=== PATIENT | male | born 1950 | race Caucasian/White ===

== ENCOUNTER 2018-07-07 14:49 | Outpatient (CLI) | payer MEDICARE, OTHER | END 2018-07-07 14:50 | disposition home or self-care (01) | LOC: SC 14:49 | PROVIDERS: ATTEND Nurse Practitioner Family | DX: G47.33 Obstructive sleep apnea (adult) (pediatric) (principal) | CPT/HCPCS: 99214; G0463; 99212 ==

== ENCOUNTER 2020-06-01 09:38 | Outpatient (CLI) | payer MEDICARE, OTHER ==
[2020-06-01 16:04] LABS: CALCIUM 9.6 mg/dL (8.5-10.3)
[2020-06-01 16:05] LABS: ALBUMIN 4.4 g/dL (3.2-5.5); ALKALINE PHOSPHATASE 52 IU/L (42-121); ALT ALANINE AMINOTRANSFERASE 30 IU/L (10-60); AST ASPARTATE AMINOTRANSFERASE 27 IU/L (10-42); BILIRUBIN,DIRECT 0.2 mg/dL (0.1-0.5); BILIRUBIN,TOTAL 1.1 mg/dL (0.2-1.0); CHOL/HDL RATIO 3.1 (<5.0); CHOLESTEROL 121 mg/dL; HDL CHOLESTEROL 39 mg/dL; LDL CHOLESTEROL,CALCULATED 61 mg/dL; LDL/HDL RATIO 1.6 (<3.6); TOTAL PROTEIN 7.5 g/dL (6.7-8.2); VLDL CHOLESTEROL 21 mg/dL
== END 2020-06-01 09:39 | disposition home or self-care (01) ==
LOC: LAB.S 09:38
PROVIDERS: ATTEND Internal Medicine Cardiovascular Disease
DX: I10 Essential (primary) hypertension (principal); I25.10 Atherosclerotic heart disease of native coronary artery without angina pectoris; E78.2 Mixed hyperlipidemia; Z12.5 Encounter for screening for malignant neoplasm of prostate; R79.89 Other specified abnormal findings of blood chemistry
CPT/HCPCS: 36415; 80048; 80061; 80076; 83721; 84153

== ENCOUNTER 2021-09-04 13:02 | Outpatient (CLI) | payer MEDICARE, OTHER ==
[2021-09-04 14:04] VITALS: BP 177/94
--- NOTE | 2021-09-04 14:04 | SLEEP CARE CONSULTATION ---
Information from patient questionnaire entered by Yessenia Garcia MA. I have reviewed and concur with the information entered by Yessenia Garcia MA. This document represents the service I personally performed and the decisions made by , Carmen Reaves ARNP. History of Present Illness Service Date and Time: 09/04/2021 1302 Reason for Visit: New patient (last seen 2017, on CPAP ), Previously diagnosed sleep apnea, sleep apnea on CPAP therapy Chief Complaint: reports: Other (review, over 3 years since last visit - Update supplies) Usual bedtime: 11 pm-12 midnight Time it takes to fall asleep: 20 min - 1 hours Snores at night: Yes Observed to quit breathing while asleep: No (not sure since having CPAP) Sleeps alone due to snoring: No Number of times waking at night: 2-3 times Reasons for waking at night: reports: Bathroom (mostly), Other (unknown reason) Toss, Turn, or Twitch while sleeping: Yes Recalls having dreams: Yes Usually gets out of bed at: 0430 to 0900 am Feels refreshed in the morning: No Morning headache: No Sleepy or fatigued during the day: No (yes, if I swim, otherwise no) Ever fallen asleep while driving: No Takes day naps: Yes (daily) Dreams during day naps: No Prior sleep studies: Yes Additional HPI information: FAMILIA ZHU was previously diagnosed to have mild, AHI 14.3, obstructive sleep apnea-hypopnea syndrome and comes in today to re-establish care for CPAP therapy. - Parasomnia Symptoms Ever been unable to move upon waking from sleep: No Walks in sleep: No Talks in sleep: No Ever acted out dreams in sleep: No Ever felt weak in the knees when startled or emotional: No Bothered by creepy, crawly, restless sensations in legs: No Problems with memory or concentration: Yes (Covid - depression - yes) CPAP Compliance Data - Data Reviewed with Patient Average duration of nightly device use: 6 hours and 44 minutes Compliance rate %: 93.3 Current pressure setting (cmH2O): 5-10 Humidity setting: off Heated hose settin Average residual AHI: 7.5 Average large leak: 11 minutes 2 seconds Compliance data discussion: He used to get his supplies from [employer]. He last purchased a mask online. He is using a nasal pillows mask. He has an old RemStar 60 series that he states still works that may not be on the recall and a Dreamstation that he has registered for the recall. Subjective Missed days of use due to: reports: other (recall) Patient concerns: reports: dry mouth, nose, throat (little bit, nothing bad). denies: aerophagia, mask discomfort, air blowing in eyes, mask leak noise, condensation in mask/hose, nasal congestion, epistaxis, other Observed to snore while using device: No Current pressure setting perceived as: comfortable On therapy, patient: reports: sleeping better, awakening more refreshed, being more awake and alert during the day, more rested overall, other (He has to use his CPAP to sleep). denies: drowsiness while driving Initial [place] Sleepiness Scale score: 10 (2014) Current [place] Sleepiness Scale score: 12 (2021) Past Medical History Past Medical History: reports: Hypertension, Coronary Heart Disease, Hypothyroidism, Anxiety, Depression Social History The patient's occupation is a RE. Patient is and lives in [place]. Have you smoked in the past 12 months: No Cigarettes per day (20/pack): 10 Years of smokin (months) Quit date: 1968 Smoking Pack Years: 3.0 Alcohol use: Yes Alcohol amount and frequency: 4-5 times a month Caffeine use: Yes Caffeine amount and frequency: 1-2 times day, not very often Family History Family history of sleep disordered breathing: No Family Hx Sleep Apnea: Mother: Snoring, Sleep apnea - Untreated, Father: Snoring, Sleep apnea - Untreated, Grandparent: Snoring, Sleep apnea - Untreated Allergies and Home Medications Drug allergies reviewed: Yes (Codiene, Sulfa) Home medication list reviewed: Yes Allergy and home medication list: Amlodipine 10 mg Temazepam 15 mg HCTZ 37.5-25 mg Atorvasatin 20 mg Lisinopril 20 mg Levothyroxine 200 mg Aspirin 81 mg D3 5 mcg (2000 IU) Multivitamin Flaxseed Oil 1400 mg Glucosamine 1500 mg Fish oil 1000 mg Ketoconazole 2% shampoo Vitamin C 1000 mg Review of Systems Weight gain over past 5 years: 20 Psychiatric: reports: depression Physical Exam Vital signs obtained and entered by: Ofelia THACKER Blood Pressure: 177/94 (angry at onset of appointment/ just drank coffee) Cuff size: wrist Heart Rate: 55 O2 Saturation: 98 Height: 5 ft 10 in Weight: 230 lb (h) Body Mass Index: 33.0 BMI Classification: Obese Impression and Plan 1. Obstructive Sleep Apnea-Hypopnea Syndrome, mild, with good treatment compliance and fair apnea control with mild elevation of residual AHI. On CPAP therapy, the patient has better sleep quality and is more rested overall. The patient would like to keep the pressure setting it is at currently because it is comfortable. He does have significant improvement of his sleep apnea at current pressure. Patient advised to contact me if pressure change is uncomfortable so that it can be adjusted. Goals for apnea control discussed. Patient's last DME is closed down and he would like to get new supplies. I will have my respite coordinator inform of DME options. A DWO prescription will then be made. Patient advised to contact this office if further supply problems. Patient has already registered their device for the recall. Patient denies any black particles seen in machine or hoses, any unusual odors coming from device. Patient has not experienced any physical symptoms such as upper airway irritation, headache, skin or eye irritation, asthma, nausea/vomiting, difficulty breathing or chest pain. If patient is not able to sleep due to waking up choking, gasping for air or other respiratory distress that they may decide to continue using it until it is either replaced or repaired. If patient has an older device that may not be on the recall and is set at 6-10 cmH2O, that he may use in the meantime. He will check that it is not on the recall and use it if it is not. Patient cannot go without his device to sleep, he does not sleep very well. Patient voiced understanding and agreement with plan. Patient's apnea severity and rationale for treatment to reduce apnea, improve sleep quality and reduce cardiovascular and cerebrovascular events was reviewed. I also reviewed the benefit of consistent device use of CPAP for hypertension. * Continue auto CPAP pressure at 5-10 cmH2O (6-10 cmH2O on RemStar) * Transfer DME * Update supplies * Notify me if snoring with mask or feeling that the pressure is too much or too little * Attempt to lose weight * Call this office if any problems using CPAP * Return for follow up in 1 year, or sooner if concerns arise Counseling Topics: Spare mask, Weight loss health impact Visit Type: In Office Time Spent with Patient (minutes): 44 Provider Statement: I spent 100% of the Face to Face Visit with the patient with greater than 50% spent counseling the patient and coordination of care.
== END 2021-09-04 13:03 | disposition home or self-care (01) ==
LOC: SC 13:02
PROVIDERS: ATTEND Nurse Practitioner Family
DX: G47.33 Obstructive sleep apnea (adult) (pediatric) (principal)
CPT/HCPCS: 99203; G0463; 99212

== ENCOUNTER 2021-11-29 08:13 | Outpatient (CLI) | payer MEDICARE, OTHER ==
[2021-11-29 15:14] LABS: ALBUMIN 4.2 g/dL (3.2-5.5); ALBUMIN/GLOBULIN RATIO 1.4 (1.0-2.2); ALKALINE PHOSPHATASE 56 IU/L (42-121); ALT ALANINE AMINOTRANSFERASE 34 IU/L (10-60); AST ASPARTATE AMINOTRANSFERASE 28 IU/L (10-42); BILIRUBIN,TOTAL 0.7 mg/dL (0.2-1.0); BUN - BLOOD UREA NITROGEN 24 mg/dL (6-20); CALCIUM 9.4 mg/dL (8.5-10.3); CARBON DIOXIDE - CO2 24 mmol/L (21-32); CHLORIDE 103 mmol/L (101-111); CHOL/HDL RATIO 2.8 (<5.0); CHOLESTEROL 121 mg/dL; CREATININE 1.1 mg/dL (0.6-1.2); GFR - MDRD 66 (>89); GLUCOSE 100 mg/dL (70-100); HDL CHOLESTEROL 43 mg/dL; LDL CHOLESTEROL,CALCULATED 57 mg/dL; LDL/HDL RATIO 1.3 (<3.6); POTASSIUM 4.3 mmol/L (3.5-5.0); SODIUM 139 mmol/L (135-145); TOTAL PROTEIN 7.1 g/dL (6.7-8.2); TRIGLYCERIDES 104 mg/dL; VLDL CHOLESTEROL 21 mg/dL
== END 2021-11-29 08:14 | disposition home or self-care (01) ==
LOC: LAB.S 08:13
PROVIDERS: ATTEND Internal Medicine Cardiovascular Disease
DX: E78.2 Mixed hyperlipidemia (principal); I10 Essential (primary) hypertension
CPT/HCPCS: 36415; 80053; 80061; 83721

== ENCOUNTER 2022-09-22 07:51 | Outpatient (CLI) | payer MEDICARE, OTHER ==
[2022-09-22 14:15] LABS: BASOPHILS # (AUTO) 0.1 10^3/uL (0.0-0.1); BASOPHILS % (AUTO) 0.7 %; EOSINOPHILS # (AUTO) 0.3 10^3/uL (0.0-0.7); EOSINOPHILS % (AUTO) 4.7 %; HGB - HEMOGLOBIN 14.1 g/dL (14.0-18.0); LYMPHOCYTES # (AUTO) 1.2 10^3/uL (1.5-3.5); LYMPHOCYTES % (AUTO) 17.3 %; MEAN CORPUSCULAR HGB CONC 33.6 g/dL (32.0-36.0); MEAN CORPUSCULAR VOLUME 98.4 fL (80.0-94.0); MEAN PLATELET VOLUME 11.1 fL (7.4-11.4); MONOCYTES # (AUTO) 0.6 10^3/uL (0.0-1.0); NEUTROPHILS # (AUTO) 4.8 10^3/uL (1.5-6.6); NEUTROPHILS % (AUTO) 68.2 %; PLT - PLATELET COUNT 235 10^3/uL (130-450); RED BLOOD COUNT 4.27 10^6/uL (4.70-6.10)
[2022-09-22 14:47] LABS: THYROID STIMULATING HORMONE 0.21 uIU/mL (0.34-5.60)
[2022-09-22 21:29] LABS: FREE T4 (FREE THYROXINE) 1.3 ng/dL (0.58-1.64)
[2022-09-23 18:01] LABS: ALBUMIN 4.4 g/dL (3.2-5.5); ALBUMIN/GLOBULIN RATIO 1.6 (1.0-2.2); ALKALINE PHOSPHATASE 56 IU/L (42-121); ALT ALANINE AMINOTRANSFERASE 39 IU/L (10-60); AST ASPARTATE AMINOTRANSFERASE 32 IU/L (10-42); BILIRUBIN,TOTAL 1.1 mg/dL (0.2-1.0); BUN - BLOOD UREA NITROGEN 20 mg/dL (6-20); CALCIUM 9.8 mg/dL (8.5-10.3); CARBON DIOXIDE - CO2 23 mmol/L (21-32); CHLORIDE 103 mmol/L (101-111); CHOL/HDL RATIO 3.1 (<5.0); CHOLESTEROL 121 mg/dL; CREATININE 1.1 mg/dL (0.6-1.2); GFR - MDRD 66 (>89); GLUCOSE 91 mg/dL (70-100); HDL CHOLESTEROL 39 mg/dL; LDL CHOLESTEROL,CALCULATED 63 mg/dL; LDL/HDL RATIO 1.6 (<3.6); POTASSIUM 4.5 mmol/L (3.5-5.0); SODIUM 141 mmol/L (135-145); TOTAL PROTEIN 7.1 g/dL (6.7-8.2); TRIGLYCERIDES 94 mg/dL; VLDL CHOLESTEROL 19 mg/dL
== END 2022-09-22 07:52 | disposition home or self-care (01) ==
LOC: LAB.S 07:51
PROVIDERS: ATTEND Nurse Practitioner Family
DX: I10 Essential (primary) hypertension (principal); E78.5 Hyperlipidemia, unspecified; E03.9 Hypothyroidism, unspecified
CPT/HCPCS: 36415; 80053; 80061; 83721; 84439; 84443; 85025